=== PATIENT | female | born 1985 | race Caucasian/White ===

== ENCOUNTER 2023-11-30 20:23 | Emergency (ER) | payer BC, MEDICAID ==
--- NOTE | 2023-11-30 20:47 | ERPHSYRPT ---
- History of Present Illness Time Seen by Provider: 11/30/23 20:43 Source: patient Exam Limitations: no limitations Physician History: Patient is a 38-year-old female with a history of migraine headache presents to our ED with the same. Patient states her migraine headache typically resolves after a dose of Tylenol. Patient took Tylenol and the headache is still there. No trauma. No fever. No nausea vomiting or diaphoresis. No meningeal signs. Symptoms are mild to moderate in intensity. No specific worsening or improving factors. Patient adds that she was at an outside hospital yesterday. Patient had a headache at that time. She had a CAT scan of her head which was negative. Patient was diagnosed with a urinary tract infection and discharged home with antibiotics and a Russell prescription. at bedside. They voiced no other complaints or concerns at this time. Portions of this note were created with voice recognition technology. There may be grammatical, spelling, punctuation or sound alike errors Timing/Duration: yesterday Modifying Factors: Improves With: nothing Associated Symptoms: denies symptoms Allergies/Adverse Reactions: naproxen [From Naprosyn] Allergy (Verified 11/30/23 20:41) Hives Home Medications: Bupropion HCl 150 mg Sr [Wellbutrin SR 150 MG] 150 mg PO DAILY 11/30/23 [History] Escitalopram Oxalate 20 mg PO DAILY 11/30/23 [History] Hydrochlorothiazide 25 mg [hydroDIURIL 25 MG] 25 mg PO DAILY 11/30/23 [History] Hydrocodone/Acetaminophen [Hydrocodone-Acetamin 5-325 mg] 1 tab PO Q6HPRN PRN MDD 4 11/30/23 [History] Insulin NPH Hum/Reg Insulin Hm [Relion Novolin 70-30 Flexpen] 20 unit SQ HS 11/30/23 [History] Losartan Potassium 100 mg PO DAILY 11/30/23 [History] Metformin HCl 500 mg [Glucophage 500 MG] 500 mg PO DAILY 11/30/23 [History] Potassium Chloride 10 meq PO DAILY 11/30/23 [History] Valacyclovir HCl [Valacyclovir] 500 mg PO Q12H 11/30/23 [History] - Review of Systems Constitutional: No Symptoms, No Fever, No Chills Eyes: No Symptoms Ears, Nose, & Throat: No Symptoms Respiratory: No Symptoms, No Cough, No Dyspnea Cardiac: No Symptoms, No Chest Pain, No Edema, No Syncope Abdominal/Gastrointestinal: No Symptoms, No Abdominal Pain, No Nausea, No Vomiting, No Diarrhea Genitourinary Symptoms: No Symptoms, No Dysuria Musculoskeletal: No Symptoms, No Back Pain, No Neck Pain Skin: No Symptoms, No Rash Neurological: No Symptoms, No Dizziness, No Focal Weakness, No Sensory Changes Psychological: No Symptoms Endocrine: No Symptoms Hematologic/Lymphatic: No Symptoms Immunological/Allergic: No Symptoms All Other Systems: Reviewed and Negative - Nursing Vital Signs Nursing Vital Signs: Initial Vital Signs Pulse Rate 79 11/30/23 20:36 Blood Pressure 140/96 11/30/23 20:36 O2 Sat by Pulse Oximetry 96 11/30/23 20:36 Pain Scale Pain Intensity 4 - Physical Exam General Appearance: no apparent distress, alert Eye Exam: PERRL/EOMI, eyes nml inspection Ears, Nose, Throat Exam: normal ENT inspection, TMs normal, pharynx normal, moist mucous membranes Neck Exam: normal inspection, non-tender, supple, full range of motion Respiratory Exam: normal breath sounds, lungs clear, airway intact, No respiratory distress Cardiovascular Exam: regular rate/rhythm, normal heart sounds, normal peripheral pulses Gastrointestinal/Abdomen Exam: soft, normal bowel sounds, No tenderness, No mass Back Exam: normal inspection, normal range of motion, No CVA tenderness, No vertebral tenderness Extremity Exam: normal inspection, normal range of motion, pelvis stable Neurologic Exam: alert, oriented x 3, cooperative, normal mood/affect, nml cerebellar function, nml station & gait, sensation nml, No motor deficits Skin Exam: normal color, warm, dry, No rash Lymphatic Exam: No adenopathy SpO2 Interpretation: normal SpO2: 96 O2 Delivery: Room Air - Course Nursing assessment & vital signs reviewed: Yes Ordered Tests: Active Orders 24 hr Category Date Time Status IV Insertion STAT Care 11/30/23 20:41 Active Medication Summary Generic Name Dose Route Start Last Admin Trade Name Freq PRN Reason Stop Dose Admin Sodium Chloride 1,000 mls @ 999 mls/hr 11/30/23 20:42 11/30/23 20:58 Sodium Chloride 0.9% 1000 Ml IV 11/30/23 21:42 999 mls/hr .Q1H1M STA Administration Discontinued Medications Generic Name Dose Route Start Last Admin Trade Name Sg PRN Reason Stop Dose Admin Diphenhydramine HCl 50 mg 11/30/23 20:41 11/30/23 20:54 Diphenhydramine Hcl 50 Mg/Ml Vial IM 11/30/23 20:42 Not Given STAT ONE Diphenhydramine HCl 50 mg 11/30/23 20:54 11/30/23 20:58 Diphenhydramine Hcl 50 Mg/Ml Vial IV 11/30/23 20:55 50 mg STAT ONE Administration Diphenhydramine HCl Confirm 11/30/23 20:55 Diphenhydramine Hcl 50 Mg/Ml Vial Administered 11/30/23 20:56 Dose 50 mg .ROUTE .STK-MED ONE Sodium Chloride Confirm 11/30/23 20:56 Sodium Chloride 0.9% 1000 Ml Administered 11/30/23 20:57 Dose 1,000 mls @ ud .ROUTE .STK-MED ONE Prochlorperazine Edisylate 10 mg 11/30/23 20:41 11/30/23 20:58 Prochlorperazine Edisylate 10 Mg/2 Ml Vial IV 11/30/23 20:42 10 mg STAT ONE Administration Prochlorperazine Edisylate Confirm 11/30/23 20:56 Prochlorperazine Edisylate 10 Mg/2 Ml Vial Administered 11/30/23 20:57 Dose 10 mg .ROUTE .STK-MED ONE - Progress Progress: improved Progress Note: Patient is a 38-year-old female presents to our ED for evaluation of a migraine headache. Patient has history of migraines. Physical exam nonremarkable. No focal or lateralizing symptoms. We placed an IV and administered Compazine Benadryl and IV fluids. Patient reassessed. Patient states she is ready for discharge. Headache resolved. She voices no other complaints or concerns at this time. Vital stable. Portions of this note were created with voice recognition technology. There may be grammatical, spelling, punctuation or sound alike errors Complexity problem addressed is moderate acute complicated. No critical care t satish. Complexity of data reviewed and is extensive. Patient had a complete workup at [facility]. We obtained the outside documentation I personally reviewed all of the reports regarding her care including her CAT scan of her head cervical spine laboratory studies urinalysis.. Risk of complication and or risk of morbidity/mortality of patient management is low. Vital stable time spent to discharge patient is approximately 15 minutes. Plan of care established for shared decision making. No social determinants of health present impede follow-up. Portions of this note were created with voice recognition technology. There may be grammatical, spelling, punctuation or sound alike errors 11/30/23 21:27 Counseled pt/family regarding: diagnosis, need for follow-up, rad results - Departure Departure Disposition: Home Clinical Impression: Migraine Condition: Stable Critical Care Time: No Referrals: WOJCIECH TIWARI MD [Primary Care Provider] - Follow up/PCP as directed Additional Instructions: Discharge/Care Plan KIANA GRAY was seen on 11/30/23 in the Emergency Room. The patient was counseled regarding Diagnosis,Lab results, Imaging studies, need for follow up and when to return to the Emergency Room. Prescriptions given: Discharge Note I have spoken with the patient and/or caregivers. I have explained the patient's condition, diagnosis and treatment plan based on the information available to me at this time. I have answered the patient's and/or caregiver's questions and addressed any concerns. The patient and/or caregivers have as good understanding of the patient's diagnosis, condition and treatment plan as can be expected at this point. The vital signs have been stable. The patient's condition is stable and appropriate for discharge from the emergency department. The patient will pursue further outpatient evaluation with the primary care physician or other designated or consulting physician as outlined in the discharge instructions. The patient and/or caregivers are agreeable to this plan of care and follow-up instructions have been explained in detail. The patient and/or caregivers have received these instruction. The patient/and or caregivers are aware that any significant change in condition or worsening of symptoms should prompt an immediate return to this or the closest emergency department or call 911.
[2023-11-30 20:52] VITALS: RESP 18; TEMP 97.5
[2023-11-30] MEDS: BENADRYL 50 MG/ML IM ONE (20:54)
[2023-11-30] MEDS ORDERED: BENADRYL 50 MG/ML ONE (20:55)
[2023-11-30] MEDS ORDERED: Sodium Chloride 0.9% 1000 ML 1,000 ML ONE (20:56)
[2023-11-30] MEDS ORDERED: Compazine 10 MG/2 ML ONE (20:56)
[2023-11-30] MEDS: Compazine 10 MG/2 ML IV ONE (20:58)
[2023-11-30] MEDS: BENADRYL 50 MG/ML IV ONE (20:58)
[2023-11-30] MEDS: Sodium Chloride 0.9% 1000 ML 1,000 ML IV STA (20:58)
[2023-11-30 21:36] VITALS: BP 129/80; PULSE 79; O2SAT 95
== END 2023-11-30 21:36 | disposition home or self-care (01) ==
LOC: ED 20:23
DX: G43.909 Migraine, unspecified, not intractable, without status migrainosus (principal); Z79.891 Long term (current) use of opiate analgesic; Z79.4 Long term (current) use of insulin; Z79.84 Long term (current) use of oral hypoglycemic drugs; Z79.899 Other long term (current) drug therapy
CPT/HCPCS: 36000; 96374; 96375; 99283; J1200